=== PATIENT | female | born 1960 | race Caucasian/White ===

== ENCOUNTER 2020-05-19 16:03 | Outpatient (CLI) | payer MEDICAID | END 2020-05-19 23:59 | disposition home or self-care (01) | LOC: VAS 16:03 | PROVIDERS: ATTEND Orthopaedic Surgery | DX: M79.605 Pain in left leg (principal); M79.89 Other specified soft tissue disorders | CPT/HCPCS: 93971 ==

== ENCOUNTER 2024-09-13 10:19 | Outpatient (CLI) | payer MEDICARE, MEDICAID | END 2024-09-13 23:59 | disposition home or self-care (01) | LOC: RAD 10:19 | PROVIDERS: ATTEND Family Medicine | DX: R13.12 Dysphagia, oropharyngeal phase (principal); I69.391 Dysphagia following cerebral infarction | CPT/HCPCS: 74230 ==

== ENCOUNTER 2025-02-24 10:39 | Outpatient (CLI) | payer MEDICARE, MEDICAID ==
--- NOTE | 2025-02-24 19:06 | CARDIOLOGY REPORT ---
APPROVED REPORT EXAM: Limited 2D, Doppler, and color-flow Echocardiogram with saline. Patient Location: OUTPATIENT Blood Pressure: 105/64 mmHg Heart Rate: 61 bpm Rhythm: SINUS Indications CEREBRAL VASCULAR ACCIDENT EVALUATE FOR PFO Classroom Monitor: Jamison Asencio MD Previous echo: NONE 2D Dimensions RVDd 2.9 cm IVSd 0.9 (0.7-1.1cm) LVDd 4.0 cm PWd 0.8 (0.7-1.1cm) IVSs 1.2 (0.8-1.2cm) LVDs 2.7 (2.5-4.0cm) PWs 0.9 (0.8-1.2cm) LVOT Diameter 1.91 (1.8-2.4cm) LVEF(%) 60.1 (>50%) IVC 13.84 mm FS (%) 31.6 % SV 42.2 ml M-Mode Dimensions Left Atrium(MM) 2.92 (2.5-4.0cm) Aortic Root 2.49 (2.2-3.7cm) Aortic Valve AoV Peak Marshall. 155.8 cm/s AoV VTI 31.7 cm AO Peak GR. 9.7 mmHg AO Mean GR. 4 mmHg LVOT VTI 21.60 cm LVOT Peak Marshall. 111.7 cm/s SNEHA (VMAX) 2.05 cm2 Mitral Valve MV E Velocity 83.3 cm/s MV DECEL TIME 257 ms MV A Velocity 93.7 cm/s MV PHT 68 ms E/A Ratio 0.9 MVA (PHT) 3.24 cm2 Tricuspid Valve TR P. Velocity 233 cm/s RAP ESTIMATE 10 mmHg TR Peak Gr. 22 mmHg RVSP 32 mmHg LEFT VENTRICLE Normal LV size and wall thickness. Prominent septal knuckle without LVOT gradient of at rest. Overall systolic function is normal. LVEF is 60%. RIGHT VENTRICLE RV is normal size and function. Elevated right heart pressures with an RVSP of 32 mmHG. ATRIA The left atrium size is normal. Mobile interatrial septum - no flow detected. Saline study was perfor med with 2 IV injections of 10 ccs of agitated normal saline at rest, with cough, and with valsalva. Negative saline study for right to left flow. AORTIC VALVE Trileaflet AV appears normal without stenosis. No insufficiency. MITRAL VALVE Mild MV annular calcification without stenosis. Trace regurgitation. TRICUSPID VALVE TV appears structurally normal with mild regurgitation. PULMONIC VALVE Normal PV without stenosis, physiologic insufficiency. GREAT VESSELS The aortic root is normal in size. IVC is normal in size and collapses greater than 50% with inspirat ion. PERICARDIUM Normal pericardium. No effusion. Other Information Study Quality: FairAdequate Conclusion Normal LV size and wall thickness. Prominent septal knuckle without LVOT gradient of at rest. Overall systolic function is normal. LVEF is 60%. RV is normal size and function. Elevated right heart pressures with an RVSP of 32 mmHG. The left atrium size is normal. Mobile interatrial septum - no flow detected. Saline study was performed with 2 IV injections of 10 ccs of agitated normal saline at rest, with cou gh, and with valsalva. Negative saline study for right to left flow. Trileaflet AV appears normal without stenosis. No insufficiency. Mild MV annular calcification without stenosis. Trace regurgitation. TV appears structurally normal with mild regurgitation. Normal pericardium. No effusion.
== END 2025-02-24 23:59 | disposition home or self-care (01) ==
LOC: RAD 10:39
PROVIDERS: ATTEND Internal Medicine Interventional Cardiology
DX: I08.1 Rheumatic disorders of both mitral and tricuspid valves (principal); I63.00 Cerebral infarction due to thrombosis of unspecified precerebral artery
CPT/HCPCS: 93306